=== PATIENT | female | born 1955 | race Caucasian/White ===

== ENCOUNTER 2023-12-17 10:30 | Outpatient (CLI) | payer OTHER, SELFPAY ==
--- NOTE | ~2023-12-17 | CT_ITS ---
Clinical Indication: Neck swelling, hernia CT Scan of the Neck, Chest, and Abdomen with Contrast: Technique: Contiguous sections were acquired throughout the neck, chest, and abdomen after intravenou s administration of 100 cc of Omnipaque 350. Dose reduction technique was used on this scan by sebastian galloway automated exposure control and iterative reconstruction technique. The dose-length product (DLP) was 1183.07 mGy-cm. Findings: No soft tissue mass or lymphadenopathy seen in the neck. Parapharyngeal fat preserved bilat erally. Parotid and submandibular glands are unremarkable. Visualized aerodigestive tract unremarkabl e. Visualized paranasal sinuses and mastoid air cells are clear. No intraorbital abnormality evident. Va scular structures are patent. Questionable focal moderate to high-grade stenosis at the origin of the right internal carotid artery. No prevertebral soft tissue swelling. There is no evidence of any significant mediastinal, hilar or axillary lymphadenopathy. The mediastin al soft tissues appear normal. There is no evidence of pleural or pericardial effusion. The lungs are clear, aside from right bibasilar atelectasis or scarring. 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 Large amount of herniated mesenteric fat also present. The liver, spleen, pancreas, gallbladder, adrenals and kidneys are within normal limits. No evidence of aortic aneurysm. No lymphadenopathy. Visualized bowel loops are unremarkable. No ascites.. Fat-containing ventral hernia present superior to the umbilicus. 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 Small fat-containing ventral hernia above the umbilicus. Questionable focal moderate to high-grade stenosis at the origin of the right internal carotid artery due to calcified plaque. Consider dedicated duplex ultrasound or CTA to further evaluate, if clinica lly warranted. Reviewed, dictated and finalized at location . Impression: Large hiatal hernia, containing the entire stomach with probable organoaxial vo lvulus. Small fat-containing ventral hernia above the umbilicus. Questionable focal moderate to high-grade stenosis at the origin of the right i nternal carotid artery due to calcified plaque. Consider dedicated duplex ultra sound or CTA to further evaluate, if clinically warranted.
[2023-12-17 11:05] LABS: Estimated Glomerular Filt Rate > 60
== END 2023-12-17 10:31 ==
PROVIDERS: PCP Physician Assistant; Visit Provider Internal Medicine Cardiovascular Disease
DX: K44.9 Diaphragmatic hernia without obstruction or gangrene (principal); K43.9 Ventral hernia without obstruction or gangrene; I25.10 Atherosclerotic heart disease of native coronary artery without angina pectoris; I10 Essential (primary) hypertension; R06.09 Other forms of dyspnea; G47.33 Obstructive sleep apnea (adult) (pediatric); K57.92 Diverticulitis of intestine, part unspecified, without perforation or abscess without bleeding; E55.9 Vitamin D deficiency, unspecified; G25.81 Restless legs syndrome; J45.909 Unspecified asthma, uncomplicated; Z87.19 Personal history of other diseases of the digestive system; Z82.3 Family history of stroke
CPT/HCPCS: 70491; 71260; 74160; Q9967